=== PATIENT | female | born 1990 | race American Indian/Alaskan Native ===

== ENCOUNTER 2017-04-02 12:00 | Outpatient (CLI) | payer OTHER ==
--- NOTE | 2017-05-13 13:19 | Ultrasound Report ---
Targeted left breast ultrasound. History: Palpable mass in a 26-year-old female. Findings: There is a round hypoechoic mass in the subcutaneous tissues of the left breast at the 1:00 position near the areola. The mass measures 1.1 cm in diameter. The margins are circumscribed and there is no acoustic shadowing. Impression: Hypoechoic solid left breast mass. The sonographic features are benign. This may represent a fibroadenoma. BI-RADS code: 3. Recommendation: If biopsy or excision are not performed, a repeat ultrasound is recommended in 6 months.
== END 2017-04-02 12:01 | disposition home or self-care (01) ==
LOC: US 12:00
PROVIDERS: ATTEND Advanced Practice Midwife
DX: N60.02 Solitary cyst of left breast (principal); N63 Unspecified lump in breast

== ENCOUNTER 2017-08-06 15:07 | Outpatient (CLI) | payer OTHER | END 2017-08-06 15:08 | disposition home or self-care (01) | LOC: LABHHL 15:07 | PROVIDERS: ATTEND Surgery | DX: N64.1 Fat necrosis of breast (principal) | CPT/HCPCS: 88305 ==

== ENCOUNTER 2017-09-21 22:27 | Emergency (ER) | payer OTHER ==
[2017-09-21 22:39] VITALS: BP 105/73
--- NOTE | 2017-09-21 23:11 | XRay Report ---
FINAL REPORT EXAM: XR RIBS UNILAT 2V RT HISTORY: rt rib pain COMPARISON: None available. FINDINGS: Two views the right ribs obtained. Right ribs are grossly intact. No discrete fracture line or step-off deformity. Right lung is clear. IMPRESSION: Right ribs are grossly intact.
== END 2017-09-22 01:50 | disposition left against medical advice (07) ==
LOC: ED 22:27
DX: R07.81 Pleurodynia (principal); Z53.21 Procedure and treatment not carried out due to patient leaving prior to being seen by health care provider